=== PATIENT | female | born 1990 | race African-American/Black ===

== ENCOUNTER 2017-02-15 15:52 | Inpatient (IN) ==
[2017-02-15] MEDS ORDERED: ONDANSETRON 4 MG/2 ML VIAL IV PRN (16:47)
[2017-02-15] MEDS ORDERED: BUTORPHANOL 2 MG/ML VIAL IV PRN (16:47)
[2017-02-15] MEDS ORDERED: MEPERIDINE 50 MG/1 ML VIAL IV PRN (16:47)
[2017-02-15] MEDS ORDERED: AMPICILLIN INJ 2,000 MG in SODIUM CHLORIDE 0.9% 100 ML IV ONE (16:51)
[2017-02-15] MEDS ORDERED: OXYTOCIN/LR 20 UNIT/1,000 ML BAG IV SCH (17:00)
[2017-02-15] MEDS: LACTATED RINGERS 1,000 ML IV SCH ×3 (17:10→21:56)
[2017-02-15 17:18] LABS: Basophils % 0.4 % (0.0-0.8); Eosinophils # 0.1 10*3/uL (0.0-0.87); Eosinophils % 1.1 % (0.00-10.9); Hematocrit 31.7 VOL% (35.7-47.0); Hemoglobin 10.6 GM/DL (12.0-16.0); Immature Granulocytes % 0.4 %; Immature Granulocytes Absolute 0.03 #; Lymphocytes # 2.3 10*3/uL (1.4-4.0); Lymphocytes % 28.5 % (21.3-54.2); Mean Corpuscular HGB Conc 33.4 GM/DL (32-36); Mean Corpuscular Hemoglobin 30 PG (27-34); Mean Corpuscular Volume 88.5 FL (87-102); Mean Platelet Volume 10.3 FL (9.6-12.0); Monocytes # 0.7 10*3/uL (0.11-0.8); Monocytes % 8.8 % (1.7-12.7); Neutrophils # 4.8 10*3/uL (1.4-7.4); Neutrophils % 60.8 % (38.7-73.9); Platelet Count 273 T/CUMM (130-400); Red Blood Count 3.58 MC/CUMM (3.8-5.5); Red Cell Distribution Width 12.4 % (9.3-17.3); White Blood Count 7.9 T/CUMM (4-12)
[2017-02-15 17:48] LABS: Alanine Aminotransferase < 9 U/L (13-56); Albumin 2.8 G/DL (3.4-5.0); Alkaline Phosphatase 114 U/L (45-117); Aspartate Amino Transferase 12 U/L (0-37); Blood Urea Nitrogen 6 MG/DL (7-18); Calcium 8.6 MG/DL (8.5-10.1); Glucose 69 MG/DL (74-106); Osmolality,Calculated 268.8 MOS/KG (273-304); Potassium 3.8 MMOL/L (3.5-5.1); Sodium 137 MMOL/L (136-145); Total Protein 6.8 G/DL (6.4-8.3)
--- NOTE | 2017-02-15 18:53 | OB/GYN History & Physical ---
History of Present Illness Chief complaint: Here for augmentation of labor @ 40.1 wks, SROM @ 1340 History of present illness: Ms. Cortez is a 26 year old female who is a with an EDC 02/14/17 per 11.1 wk ultrasound with EGA @ 40.1 wks that was sent from clinic with c/o leaking fluid at 1340 today and BPP 6/8, KELSEY 4.0. Her records are available, current, up to date and available. During the course of her , she was positive for cannabinoids, had a vitamin D 5.6 and placed on vitamin D supplementation po, inconsistent care, GBS positive, and sickle cell trait. She had a total of 9 visits and 3 ultrasounds. Today she had an ultrasound for postdates and had an KELSEY of 4.0 cm, BPP 6/8, and c/o SROM @ 1340 this evening. Labs: Blood type A positive; antibody screen negative; Rubella immune; VDRL non reactive; Urine culture negative; HBsAg negative; HIV negative; sickle cell screen ; UDS positive cannabinoids; Vitamin D 5.6; Cystic Fibrosis negative; diabetic screen 95; GC negative; Chlamydia negative; GBS positive; 01/26/17 UDS negative Home Medications Medication Instructions Recorded Confirmed Type No Known Home Medications [No 02/15/17 02/15/17 History Known Home Medications] Allergies Allergy/AdvReac Type Severity Reaction Status Date / Time No Known Allergies Allergy Verified 02/15/17 16:25 12 point system: reviewed and no additional remarkable complaints except as stated Medical,Surgical,& Family Hx - Medical History Medical History: noncontributory Reproductive: No history of: Ectopic , Complication - Surgical History Reproductive Surgeries: Patient denies;: Section Additional Surgical History: H/O Elective - Family History Family History: Reports;: Family Diabetes (MOTHER, MGM, Uncle), Family Heart Disease (FATHER, uncles, PGF), Family Hypertension (MGM), Additional Family History (COPD MGM; BROTHER ASTHMA; Ovarian Cancer maternal aunt) - Social History Smoking Status: Never smoker Have you smoked in the last 12 months: No Frequency of Alcohol Use: None Type of Drug Use: None Marital Status: Single Lives With:: Children Functional capacity: 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 IUPC inserted with clear flashback noted Breast: bilateral: normal Abdomen obstetrics: Present: bowel sounds normal Vagina: Present: normal moisture Uterus exam: Present: enlarged (gravid, fundal height @ 38 cm, EFW 8 pounds 9 ounces per ultrasound today) Anus/Rectum: Present: normal perianal skin - Head Head exam: Present: normal inspection - Eye Pupils: Present: normal accommodation - ENT ENT exam: Present: normal exam - Neck Neck exam: Present: normal inspection - Respiratory Respiratory exam: Present: clear to auscultation bilaterally - Cardiovascular Cardiovascular exam: Present: regular rate and rhythm - GI/Abdominal GI/Abdominal exam: Present: normal bowel sounds - Extremities Exam Extremities exam: Present: normal inspection, normal capillary refill, full ROM - Back Exam Back exam: Present: normal inspection - Neurological Exam Neurological exam: Present: alert, oriented X3, normal gait - Psychiatric Psychiatric exam: Present: normal affect, normal mood - Skin Skin exam: Present: normal color, warm, dry Assessment and Plan (1) Positive GBS test Status: Acute Current Visit: Yes (2) Oligohydramnios antepartum Status: Acute Current Visit: Yes (3) Spontaneous rupture of membranes Status: Acute Current Visit: Yes (4) Anemia Status: Acute Current Visit: Yes Qualifiers: Anemia type: iron deficiency (5) Vitamin D deficiency Status: Acute Current Visit: Yes Results - Labs CBC & BMP: 02/15/17 17:00 02/15/17 17:00 Labs: Laboratory Tests 02/15/17 02/15/17 02/15/17 17:00 17:00 17:00 WBC 7.9 RBC 3.58 L Hgb 10.6 L Hct 31.7 L MCV 88.5 MCH 30 MCHC 33.4 RDW 12.4 Plt Count 273 MPV 10.3 Neut % (Auto) 60.8 Lymph % (Auto) 28.5 [place] % (Auto) 8.8 Eos % (Auto) 1.1 Baso % (Auto) 0.4 Neut # (Auto) 4.8 Lymph # (Auto) 2.3 [place] # (Auto) 0.7 Eos # (Auto) 0.1 Baso # (Auto) 0.0 Immature Gran % 0.4 Nucleated RBC % 0.0 Immature Gran # 0.03 Nucleated RBCs # 0.00 Immature Plt Fraction 0.0 Sodium 137 Potassium 3.8 Chloride 106 Carbon Dioxide 21 Anion Gap 13.8 BUN 6 L Creatinine 0.60 GFR Calculation 177 BUN/Creatinine Ratio 10.00 Glucose 69 L Calculated Osmolality 268.8 L Calcium 8.6 Total Bilirubin 0.60 AST 12 ALT < 9 L Alkaline Phosphatase 114 Total Protein 6.8 Albumin 2.8 L Globulin 4.0 H Albumin/Globulin Ratio 0.7 L Blood Type A POSITIVE Antibody Screen Negative
[2017-02-15] MEDS ORDERED: ePHEDrine 50 MG/ML AMP IV PRN (19:45)
[2017-02-15] MEDS ORDERED: fentaNYL 2 MCG/ROPIV 0.2% EPID 150 ML EPIDURAL SCH (19:45)
[2017-02-15] MEDS ORDERED: ONDANSETRON 4 MG/2 ML VIAL IV ONE (19:45)
[2017-02-15] MEDS ORDERED: hydrOXYzine HCL 25 MG/1 ML VIAL IM PRN (19:45)
[2017-02-15] MEDS ORDERED: PROMETHAZINE 25 MG/1 ML VIAL IM ONE (19:45)
[2017-02-15] MEDS ORDERED: CITRIC ACID/SODIUM CITRATE 30 ML UDCUP PO ONE (19:45)
[2017-02-15] MEDS ORDERED: FAMOTIDINE 20 MG/2 ML VIAL IV ONE (19:45)
[2017-02-15] MEDS ORDERED: diphenhydrAMINE 50 MG/1 ML VIAL IV PRN ×2 (19:45)
[2017-02-15] MEDS ORDERED: AMPICILLIN INJ 1,000 MG in SODIUM CHLORIDE 0.9% 100 ML IV SCH (21:00)
--- NOTE | 2017-02-15 21:34 | OB/GYN Progress Note ---
Assessment and Plan (1) Positive GBS test Status: Acute Current Visit: Yes (2) Oligohydramnios antepartum Status: Acute Current Visit: Yes (3) Spontaneous rupture of membranes Status: Acute Current Visit: Yes (4) Anemia Status: Acute Current Visit: Yes Qualifiers: Anemia type: iron deficiency (5) Vitamin D deficiency Status: Acute Current Visit: Yes RN INTERNATIONAL - PN: Subj Interval history: S: States feels better since epidural placed. Denies any pressure O: FHTs @ 130s with spontaneous variability UCs every 3-4 min/ 50 sec/ mild SVE 4cm/ 80%/ -1 station Pitocin @ 10 mu/min A: IUP @ 40.1 wks, Category I FHR tracing, Oligohydraminos, Pitocin Augmentation of Labor, Epidural intact P: continue with present management plan. Reposition for comfort. Questions answered to desired level of satisfaction. Insert joseph catheter. Results - Labs CBC & BMP: 02/15/17 17:00 02/15/17 17:00
[2017-02-15] MEDS ORDERED: miSOPROStol 200 MCG TABLET ONE (22:00)
[2017-02-15] MEDS ORDERED: LIDOCAINE 1% 50 ML VIAL ONE (22:00)
[2017-02-15] MEDS ORDERED: METHYLERGONOVINE 0.2 MG/1 ML AMP ONE (22:01)
[2017-02-15 23:31] LABS: Apearance,Urine CLEAR (Clear); Bacteria,Urine Occasional /HPF (Few); Bilirubin,Urine Negative (Negative); Blood, Urine Negative (Negative); Glucose,Urine (UA) Negative (Negative); Ketones,Urine 20 mg/dL (Negative); Mucus,Urine Occasional /LPF (Occasional); Nitrite,Urine Negative (Negative); Protein,Urine Negative; RBC,Urine 2 /HPF (0-4); Squamous Epithelial Cell,Urine Occasional /HPF (0-10); Urine Color Yellow (Yellow); Urine Specific Gravity 1.012 (1.001-1.035); Urine Urobilinogen < 2.0 EU/DL (0.2-1.0); WBC,Urine 1 /HPF (0-6)
[2017-02-15 23:37] LABS: Barbiturates Screen,Urine Negative (Negative); Benzodiazepines Screen,Urine Negative (Negative); Cannabinoid Screen,Urine Negative (Negative); Opiate Screen,Urine Negative (Negative); Phencyclidine Screen,Urine Negative (Negative)
--- NOTE | 2017-02-16 01:09 | Operative Note ---
Date of procedure: 02/16/17 Pre-op diagnosis: IUP @ 40.1 wks, Oligohydraminos, BPP 6/8 Post-op diagnosis: other () Procedure: Received patient in dorsal lithotomy position, prepped and draped. At 0050, spontaneous delivery of head in ZEUS position under an epidural anesthetic and maternal pushing efforts. Anterior then posterior shoulder delivered easily without difficulty. delivered in usual fashion and secured. Mouth and nose bulb suctioned with vigorous cry noted. dried and placed on mother' s abdomen. Cord doubly clamped after 1 min and allowed to be cut by patient's mother. Female attended per nursery nurse. Cord blood obtained. At 0053 , spontaneous delivery of placenta via Katherine- 3 vessel cord noted, intact, normal cord insertion, mild calcifications noted. Hemostasis maintained with fundal massage and Pitocin 20 units in 1000cc of LR. Uterine sweep performed with small clots removed. Perineum inspected with periurethral laceration noted , stable and no repair needed. Female with Apgars 9 and 9 stable and presently on mother chest. Mother desires to breastfeed and is stable. Anesthesia: epidural Surgeon / Physician: Kaylene Parra Estimated blood loss: minimal (150cc) Specimens: other (Placenta to pathology secondary to olighohydraminos and GBS positive) Condition: stable Disposition: floor Results - Labs CBC & BMP: 02/15/17 17:00 02/15/17 17:00 Discharge Plan - Discharge Medications No Action No Known Home Medications [No Known Home Medications] - Follow Up or Referral - Forms/Instructions
[2017-02-16] MEDS ORDERED: oxyCODONE/ACETAMINOPHEN 5-325 MG TABLET PO PRN (01:10)
[2017-02-16] MEDS ORDERED: WITCH HAZEL PADS 100/JAR TOP PRN (01:10)
[2017-02-16] MEDS ORDERED: OXYTOCIN/LR 20 UNIT/1,000 ML BAG IV ONE (01:10)
[2017-02-16] MEDS ORDERED: MEASLES/MUMPS/RUBELLA VACCINE 0.5 ML VIAL SUBCUT ONE (01:10)
[2017-02-16] MEDS ORDERED: ACETAMINOPHEN 325 MG TABLET PO PRN (01:10)
[2017-02-16] MEDS ORDERED: DIPH/TET/ACEL PERT BOOSTER VACCINE 0.5 ML VIAL IM ONE (01:10)
[2017-02-16] MEDS ORDERED: BISACODYL 10 MG SUPP RECTAL PRN (01:10)
[2017-02-16] MEDS ORDERED: LANOLIN 50% CREAM 0.3 OZ TUBE TOP PRN (01:10)
[2017-02-16] MEDS ORDERED: RHO(D) IMMUNE GLOBULIN 300 MCG SYRINGE IM ONE (01:10)
[2017-02-16] MEDS ORDERED: BENZOCAINE 20%/MENTHOL 0.5% SPRAY 56 GM CAN TOP PRN (01:10)
[2017-02-16] MEDS ORDERED: HYDROCORTISONE 2.5% RECTAL CREAM 30 GM TUBE TOP PRN (01:10)
[2017-02-16] MEDS: IBUPROFEN 800 MG TABLET PO PRN ×2 (04:07→16:19)
[2017-02-16] MEDS: oxyCODONE/ACETAMINOPHEN 5-325 MG TABLET PO PRN ×3 (05:58→23:23)
[2017-02-16] MEDS: DOCUSATE SODIUM 100 MG CAPSULE PO SCH ×2 (08:22→21:40)
[2017-02-16] MEDS: FERROUS SULFATE 325 MG TABLET PO SCH ×2 (08:22→21:40)
--- NOTE | 2017-02-16 09:28 | OB/GYN Progress Note ---
Assessment and Plan (1) Positive GBS test Status: Resolved Current Visit: Yes (2) Oligohydramnios antepartum Status: Resolved Current Visit: Yes (3) Spontaneous rupture of membranes Status: Acute Current Visit: Yes (4) Anemia Status: Acute Current Visit: Yes Qualifiers: Anemia type: iron deficiency (5) Vitamin D deficiency Status: Acute Current Visit: Yes (6) (normal spontaneous vaginal delivery) Status: Acute Current Visit: Yes DREDGE CAPTAIN - PN: Subj Interval history: Breast-feeding without difficulty. Denies any problems presently. States he got out of the bed and fell to her knees early this morning. Denies any residual problems. A: Delivery Day, , S/P fall, Stable P: Continue routine care. Exam DREDGE CAPTAIN - Constitutional Vitals: Vital Signs Temp Pulse Resp BP Pulse Ox 02/16/17 07:19 98 F 81 20 96/65 98 02/16/17 06:40 97.9 F 80 18 104/54 96 02/16/17 05:40 98.6 F 86 20 113/67 100 02/16/17 04:40 98.3 F 86 20 110/63 99 02/16/17 04:10 98.6 F 89 18 101/65 99 02/16/17 03:40 98.9 F 81 18 103/62 100 02/16/17 00:00 97.8 F 86 18 91/60 100 02/15/17 20:00 97.6 F 83 18 104/68 General appearance: no acute distress - Antepartum / Post Post Exam Abdomen obstetrics: Present: bowel sounds normal Vagina: Present: normal moisture Uterus exam: Present: enlarged (firm, midline 1 FB below umbilicus) Anus/Rectum: Present: normal perianal skin - Head Head exam: Present: normal inspection - Eye Eye exam: Present: EOMI Pupils: Present: normal accommodation - ENT ENT exam: Present: normal exam - Neck Neck exam: Present: normal inspection - Respiratory Respiratory exam: Present: clear to auscultation bilaterally - Breast Menstruation: other (scant rubra) - Cardiovascular Cardiovascular exam: Present: regular rate and rhythm - GI/Abdominal GI/Abdominal exam: Present: normal bowel sounds - Extremities Exam Extremities exam: Present: normal inspection, normal capillary refill, full ROM - Back Exam Back exam: Present: normal inspection - Neurological Exam Neurological exam: Present: alert, oriented X3, normal gait - Psychiatric Psychiatric exam: Present: normal affect, normal mood - Skin Skin exam: Present: normal color, warm, dry Results - Labs CBC & BMP: 02/15/17 17:00 02/15/17 17:00 Labs: Laboratory Tests 02/15/17 02/15/17 02/15/17 17:00 17:00 17:00 WBC 7.9 RBC 3.58 L Hgb 10.6 L Hct 31.7 L MCV 88.5 MCH 30 MCHC 33.4 RDW 12.4 Plt Count 273 MPV 10.3 Neut % (Auto) 60.8 Lymph % (Auto) 28.5 [place] % (Auto) 8.8 Eos % (Auto) 1.1 Baso % (Auto) 0.4 Neut # (Auto) 4.8 Lymph # (Auto) 2.3 [place] # (Auto) 0.7 Eos # (Auto) 0.1 Baso # (Auto) 0.0 Immature Gran % 0.4 Nucleated RBC % 0.0 Immature Gran # 0.03 Nucleated RBCs # 0.00 Immature Plt Fraction 0.0 Sodium 137 Potassium 3.8 Chloride 106 Carbon Dioxide 21 Anion Gap 13.8 BUN 6 L Creatinine 0.60 GFR Calculation 177 BUN/Creatinine Ratio 10.00 Glucose 69 L Calculated Osmolality 268.8 L Calcium 8.6 Total Bilirubin 0.60 AST 12 ALT < 9 L Alkaline Phosphatase 114 Total Protein 6.8 Albumin 2.8 L Globulin 4.0 H Albumin/Globulin Ratio 0.7 L Urine Color Urine Appearance Urine pH Ur Specific [place] Urine Protein Urine Glucose (UA) Urine Ketones Urine Blood Urine Nitrate Urine Bilirubin Urine Urobilinogen Urine Leukocytes Urine RBC Urine WBC Ur Squamous Epith Cells Urine Bacteria Urine Mucus Ur Culture Indicated? Urine Opiates Screen Ur Barbiturates Screen Ur Phencyclidine Scrn U Amphetamine/Methamph U Benzodiazepines Scrn U Cocaine Metab Screen U Cannabinoids Screen Blood Type A POSITIVE Antibody Screen Negative 02/15/17 02/15/17 21:15 21:15 WBC RBC Hgb Hct MCV MCH MCHC RDW Plt Count MPV Neut % (Auto) Lymph % (Auto) [place] % (Auto) Eos % (Auto) Baso % (Auto) Neut # (Auto) Lymph # (Auto) [place] # (Auto) Eos # (Auto) Baso # (Auto) Immature Gran % Nucleated RBC % Immature Gran # Nucleated RBCs # Immature Plt Fraction Sodium Potassium Chloride Carbon Dioxide Anion Gap BUN Creatinine GFR Calculation BUN/Creatinine Ratio Glucose Calculated Osmolality Calcium Total Bilirubin AST ALT Alkaline Phosphatase Total Protein Albumin Globulin Albumin/Globulin Ratio Urine Color Yellow Urine Appearance Clear Urine pH 6.0 Ur Specific [place] 1.012 Urine Protein Negative Urine Glucose (UA) Negative Urine Ketones 20 Urine Blood Negative Urine Nitrate Negative Urine Bilirubin Negative Urine Urobilinogen < 2.0 H Urine Leukocytes Negative Urine RBC 2 Urine WBC 1 Ur Squamous Epith Cells Occasional Urine Bacteria Occasional Urine Mucus Occasional Ur Culture Indicated? Not indicated Urine Opiates Screen Negative Ur Barbiturates Screen Negative Ur Phencyclidine Scrn Negative U Amphetamine/Methamph Negative U Benzodiazepines Scrn Negative U Cocaine Metab Screen Negative U Cannabinoids Screen Negative Blood Type Antibody Screen
--- NOTE | 2017-02-16 09:43 | Anesthesia Post-Op ---
Anesthesia Post OP - Post Ansesthetic Evaluation Patient seen in post op: Yes Resp: within normal limits CV: within normal limits Mental: within normal limits Temp: within normal limits [id number]: within normal limits Nausea and Vomiting: within normal limits Pain: within normal limits
[2017-02-17] MEDS: IBUPROFEN 800 MG TABLET PO PRN ×2 (03:17→12:23)
[2017-02-17 06:48] LABS: Basophils % 0.3 % (0.0-0.8); Eosinophils # 0.1 10*3/uL (0.0-0.87); Eosinophils % 1.4 % (0.00-10.9); Hematocrit 26.8 VOL% (35.7-47.0); Hemoglobin 9.1 GM/DL (12.0-16.0); Immature Granulocytes % 0.3 %; Immature Granulocytes Absolute 0.03 #; Lymphocytes # 3.3 10*3/uL (1.4-4.0); Lymphocytes % 35.6 % (21.3-54.2); Mean Corpuscular Hemoglobin 30 PG (27-34); Mean Corpuscular Volume 87.6 FL (87-102); Mean Platelet Volume 10.6 FL (9.6-12.0); Monocytes # 0.8 10*3/uL (0.11-0.8); Monocytes % 9.1 % (1.7-12.7); Neutrophils # 4.9 10*3/uL (1.4-7.4); Neutrophils % 53.3 % (38.7-73.9); Platelet Count 257 T/CUMM (130-400); Red Blood Count 3.06 MC/CUMM (3.8-5.5); Red Cell Distribution Width 12.7 % (9.3-17.3); White Blood Count 9.1 T/CUMM (4-12)
[2017-02-17] MEDS: DOCUSATE SODIUM 100 MG CAPSULE PO SCH (08:19)
[2017-02-17] MEDS: FERROUS SULFATE 325 MG TABLET PO SCH (08:19)
--- NOTE | 2017-02-17 10:24 | OB/GYN Progress Note ---
Assessment and Plan (1) Positive GBS test Status: Resolved Current Visit: Yes (2) Oligohydramnios antepartum Status: Resolved Current Visit: Yes (3) Spontaneous rupture of membranes Status: Acute Current Visit: Yes (4) Anemia Status: Acute Current Visit: Yes Qualifiers: Anemia type: iron deficiency (5) Vitamin D deficiency Status: Acute Current Visit: Yes (6) (normal spontaneous vaginal delivery) Status: Acute Current Visit: Yes TROUBLE LOCATER - PN: Subj Interval history: Breast and bottle feeding. Denies any other problems presently. Exam TROUBLE LOCATER - Constitutional Vitals: Vital Signs Temp Pulse Resp BP Pulse Ox 02/17/17 08:00 75 18 02/17/17 07:44 97 F L 75 18 91/50 99 02/17/17 04:00 97.2 F L 80 18 103/60 97 02/17/17 00:00 96.9 F L 85 18 90/50 98 02/16/17 20:00 97.9 F 81 18 88/48 98 02/16/17 15:42 98.4 F 88 20 101/58 98 02/16/17 11:50 97.6 F 75 20 84/64 98 General appearance: no acute distress - Antepartum / Post Antepartum Exam Breast: bilateral: normal Abdomen obstetrics: Present: bowel sounds normal Vagina: Present: normal moisture Uterus exam: Present: enlarged (Firm midline, 3 fingerbreadths below the umbilicus) Adnexa: bilateral: normal Anus/Rectum: Present: normal perianal skin - Head Head exam: Present: normal inspection - Neck Neck exam: Present: normal inspection - Respiratory Respiratory exam: Present: clear to auscultation bilaterally - Cardiovascular Cardiovascular exam: Present: regular rate and rhythm - GI/Abdominal GI/Abdominal exam: Present: normal bowel sounds - Extremities Exam Extremities exam: Present: normal inspection, normal capillary refill, full ROM - Back Exam Back exam: Present: normal inspection - Neurological Exam Neurological exam: Present: alert, oriented X3, normal gait - Psychiatric Psychiatric exam: Present: normal affect, normal mood Results - Labs CBC & BMP: 02/17/17 06:12 02/15/17 17:00 Labs: Laboratory Tests 02/15/17 02/15/17 02/15/17 17:00 17:00 17:00 WBC 7.9 RBC 3.58 L Hgb 10.6 L Hct 31.7 L MCV 88.5 MCH 30 MCHC 33.4 RDW 12.4 Plt Count 273 MPV 10.3 Neut % (Auto) 60.8 Lymph % (Auto) 28.5 [place] % (Auto) 8.8 Eos % (Auto) 1.1 Baso % (Auto) 0.4 Neut # (Auto) 4.8 Lymph # (Auto) 2.3 [place] # (Auto) 0.7 Eos # (Auto) 0.1 Baso # (Auto) 0.0 Immature Gran % 0.4 Nucleated RBC % 0.0 Immature Gran # 0.03 Nucleated RBCs # 0.00 Immature Plt Fraction 0.0 Sodium 137 Potassium 3.8 Chloride 106 Carbon Dioxide 21 Anion Gap 13.8 BUN 6 L Creatinine 0.60 GFR Calculation 177 BUN/Creatinine Ratio 10.00 Glucose 69 L Calculated Osmolality 268.8 L Calcium 8.6 Total Bilirubin 0.60 AST 12 ALT < 9 L Alkaline Phosphatase 114 Total Protein 6.8 Albumin 2.8 L Globulin 4.0 H Albumin/Globulin Ratio 0.7 L Urine Color Urine Appearance Urine pH Ur Specific [place] Urine Protein Urine Glucose (UA) Urine Ketones Urine Blood Urine Nitrate Urine Bilirubin Urine Urobilinogen Urine Leukocytes Urine RBC Urine WBC Ur Squamous Epith Cells Urine Bacteria Urine Mucus Ur Culture Indicated? Urine Opiates Screen Ur Barbiturates Screen Ur Phencyclidine Scrn U Amphetamine/Methamph U Benzodiazepines Scrn U Cocaine Metab Screen U Cannabinoids Screen Blood Type A POSITIVE Antibody Screen Negative 02/15/17 02/15/17 02/17/17 21:15 21:15 06:12 WBC 9.1 RBC 3.06 L Hgb 9.1 L Hct 26.8 L MCV 87.6 MCH 30 MCHC 34.0 RDW 12.7 Plt Count 257 MPV 10.6 Neut % (Auto) 53.3 Lymph % (Auto) 35.6 [place] % (Auto) 9.1 Eos % (Auto) 1.4 Baso % (Auto) 0.3 Neut # (Auto) 4.9 Lymph # (Auto) 3.3 [place] # (Auto) 0.8 Eos # (Auto) 0.1 Baso # (Auto) 0.0 Immature Gran % 0.3 Nucleated RBC % 0.0 Immature Gran # 0.03 Nucleated RBCs # 0.00 Immature Plt Fraction 0.0 Sodium Potassium Chloride Carbon Dioxide Anion Gap BUN Creatinine GFR Calculation BUN/Creatinine Ratio Glucose Calculated Osmolality Calcium Total Bilirubin AST ALT Alkaline Phosphatase Total Protein Albumin Globulin Albumin/Globulin Ratio Urine Color Yellow Urine Appearance Clear Urine pH 6.0 Ur Specific [place] 1.012 Urine Protein Negative Urine Glucose (UA) Negative Urine Ketones 20 Urine Blood Negative Urine Nitrate Negative Urine Bilirubin Negative Urine Urobilinogen < 2.0 H Urine Leukocytes Negative Urine RBC 2 Urine WBC 1 Ur Squamous Epith Cells Occasional Urine Bacteria Occasional Urine Mucus Occasional Ur Culture Indicated? Not indicated Urine Opiates Screen Negative Ur Barbiturates Screen Negative Ur Phencyclidine Scrn Negative U Amphetamine/Methamph Negative U Benzodiazepines Scrn Negative U Cocaine Metab Screen Negative U Cannabinoids Screen Negative Blood Type Antibody Screen
[2017-02-17 11:17] VITALS: BP 95/51
[2017-02-17] MEDS: oxyCODONE/ACETAMINOPHEN 5-325 MG TABLET PO PRN (13:31)
[2017-02-17] MEDS ORDERED: diphenhydrAMINE CAP 25 MG CAPSULE PO PRN (13:33)
--- NOTE | 2017-02-17 18:22 | Pathology Report from [facility] ---
[facility] ACCESSION # : [id number] PATIENT NAME : Cami Cortez ORDERING DR : Krystal Jones MD CLINICAL HX: Oygohydraminos and GIBS Positive POST-OP DX: Same SPECIMEN INFO: Placenta GROSS DESCRIPTION: Received fresh labeled with the patients name and consists of a 402 gram placenta measuring 17.5 x 13.2 cm x up to 2.0 cm. membranes are mccracken opaque with focal adherent clotted blood present. The umbilical cord is centrally inserted, contains three vessels and is 33.0 cm and slightly edematous. The surface is pink-mccracken. The maternal surface is dark beefy red with scattered areas of adherent clotted blood. Multiple calcifications are present. Sectioning shows no gross abnormalities. Sections submitted: A membranes and cord, B and maternal surfaces. DIAGNOSIS FOR CAMI CORTEZ: PLACENTA, 40.2 WEEKS GESTATIONAL AGE, DELIVERY : Mature placenta, 402 grams trimmed weight, less than 10th percentile for stated gestational age. Acute chorioamnionitis. Subchorionic fibrin. Tri- vascular umbilical cord, 33 cm in length. COLLECTED DATE: 02/16/2017 [facility] REPORT DATE: 02/17/2017 ELECTRONICALLY SIGNED BY: Anabelle Brewer M.D. 02/17/2017 - 13:55:03 JER[place]
== END 2017-02-17 15:05 | disposition home or self-care (01) | DRG 560 ==
LOC: N.LDOUT 15:52 → N.LD 15:54 → N.OB 02-16 03:40
PROVIDERS: ADMIT Obstetrics & Gynecology; ATTEND Obstetrics & Gynecology

== ENCOUNTER 2018-03-16 | Inpatient (IN) ==
[2018-03-16] MEDS ORDERED: ONDANSETRON 4 MG/2 ML VIAL IV PRN (01:18)
[2018-03-16] MEDS ORDERED: LACTATED RINGERS 500 ML IV PRN (01:18)
[2018-03-16] MEDS ORDERED: MEPERIDINE 50 MG/1 ML VIAL IV PRN (01:18)
[2018-03-16] MEDS ORDERED: BUTORPHANOL 2 MG/ML VIAL IV PRN (01:18)
[2018-03-16] MEDS ORDERED: PROMETHAZINE 25 MG/1 ML VIAL IM ONE (01:30)
[2018-03-16] MEDS ORDERED: fentaNYL 2 MCG/ROPIV 0.2% EPID 100 ML EPIDURAL SCH (01:30)
[2018-03-16] MEDS ORDERED: NALOXONE 0.4 MG/ML VIAL IV PRN (01:30)
[2018-03-16] MEDS ORDERED: ONDANSETRON 4 MG/2 ML VIAL IV ONE (01:30)
[2018-03-16] MEDS ORDERED: LACTATED RINGERS 1,000 ML IV SCH (01:30)
[2018-03-16] MEDS ORDERED: diphenhydrAMINE 50 MG/1 ML VIAL IV PRN ×2 (01:30)
[2018-03-16] MEDS ORDERED: ePHEDrine 50 MG/ML AMP IV PRN (01:30)
[2018-03-16] MEDS ORDERED: hydrOXYzine HCL 25 MG/1 ML VIAL IM PRN (01:30)
[2018-03-16] MEDS ORDERED: FAMOTIDINE 20 MG/2 ML VIAL IV ONE (01:51)
[2018-03-16] MEDS ORDERED: CITRIC ACID/SODIUM CITRATE 30 ML UDCUP PO ONE (01:52)
[2018-03-16 02:45] LABS: Basophils % 0.3 % (0.0-0.8); Eosinophils # 0.1 10*3/uL (0.0-0.87); Eosinophils % 0.7 % (0.00-10.9); Hematocrit 30.2 VOL% (35.7-47.0); Hemoglobin 9.9 GM/DL (12.0-16.0); Immature Granulocytes % 0.3 %; Immature Granulocytes Absolute 0.03 #; Lymphocytes # 2.5 10*3/uL (1.4-4.0); Lymphocytes % 28.5 % (21.3-54.2); Mean Corpuscular HGB Conc 32.8 GM/DL (32-36); Mean Corpuscular Hemoglobin 30 PG (27-34); Mean Corpuscular Volume 91.2 FL (87-102); Mean Platelet Volume 11.1 FL (9.6-12.0); Monocytes # 0.9 10*3/uL (0.11-0.8); Monocytes % 9.9 % (1.7-12.7); Neutrophils # 5.3 10*3/uL (1.4-7.4); Neutrophils % 60.3 % (38.7-73.9); Platelet Count 275 T/CUMM (130-400); Red Blood Count 3.31 MC/CUMM (3.8-5.5); White Blood Count 8.8 T/CUMM (4-12)
[2018-03-16] MEDS: OXYTOCIN/LR 20 UNIT/1,000 ML BAG IV SCH ×2 (03:22→07:21)
[2018-03-16] MEDS: IBUPROFEN 800 MG TABLET PO PRN ×3 (05:38→18:50)
[2018-03-17] MEDS: IBUPROFEN 800 MG TABLET PO PRN ×3 (00:32→21:31)
[2018-03-17 04:08] LABS: Basophils % 0.3 % (0.0-0.8); Eosinophils # 0.2 10*3/uL (0.0-0.87); Eosinophils % 2.1 % (0.00-10.9); Hemoglobin 8.9 GM/DL (12.0-16.0); Immature Granulocytes % 0.3 %; Immature Granulocytes Absolute 0.03 #; Lymphocytes # 2.6 10*3/uL (1.4-4.0); Lymphocytes % 30.3 % (21.3-54.2); Mean Corpuscular HGB Conc 34.2 GM/DL (32-36); Mean Corpuscular Hemoglobin 31 PG (27-34); Mean Corpuscular Volume 89.7 FL (87-102); Monocytes # 0.7 10*3/uL (0.11-0.8); Monocytes % 7.8 % (1.7-12.7); Neutrophils # 5.1 10*3/uL (1.4-7.4); Neutrophils % 59.2 % (38.7-73.9); Platelet Count 244 T/CUMM (130-400); Red Cell Distribution Width 12.2 % (9.3-17.3); White Blood Count 8.6 T/CUMM (4-12)
[2018-03-17] MEDS: DOCUSATE SODIUM 100 MG CAPSULE PO SCH ×2 (08:33→21:31)
[2018-03-18 07:25] VITALS: BP 103/62
[2018-03-18] MEDS: DOCUSATE SODIUM 100 MG CAPSULE PO SCH (09:31)
[2018-03-18] MEDS: IBUPROFEN 800 MG TABLET PO PRN (11:15)
== END 2018-03-18 12:50 | disposition home or self-care (01) | DRG 560 ==
LOC: N.LDOUT → N.LD 00:02 → N.OB 07:35
PROVIDERS: ADMIT Obstetrics & Gynecology; ATTEND Obstetrics & Gynecology